=== PATIENT | female | born 1945 | race Caucasian/White ===

== ENCOUNTER 2018-05-26 08:04 | Outpatient (CLI) | payer OTHER ==
[~2018-05-26 08:04] MED LIST: ALEVE220 M1 PO; CIPRO500 MG PO; HYZAAR 100-121 UDTAB; PERCOCET 5/3251 TAB PO
== END 2018-05-26 08:07 | disposition home or self-care (01) ==
LOC: SONOGRAMA 08:04
DX: R59.0 Localized enlarged lymph nodes (principal)